=== PATIENT | female | born 1940 | race Caucasian/White ===

== ENCOUNTER 2018-01-01 14:35 | Day surgery (SDC) | END 2018-01-01 20:20 | disposition home or self-care (01) ==

== ENCOUNTER 2018-01-15 14:44 | Day surgery (SDC) | END 2018-01-15 18:34 | disposition home or self-care (01) ==

== ENCOUNTER 2018-02-09 06:13 | Day surgery (SDC) | END 2018-02-09 10:40 | disposition home or self-care (01) ==

== ENCOUNTER 2018-02-23 06:50 | Day surgery (SDC) | END 2018-02-23 10:46 | disposition home or self-care (01) ==

== ENCOUNTER 2018-03-09 07:02 | Day surgery (SDC) | END 2018-03-09 11:03 | disposition home or self-care (01) ==

== ENCOUNTER 2018-03-30 07:47 | Day surgery (SDC) | END 2018-03-30 12:18 | disposition home or self-care (01) ==